=== PATIENT | male | born 1995 | race African-American/Black ===

== ENCOUNTER 2024-01-22 15:39 | Emergency (ER) | payer SELFPAY ==
[~2024-01-22] VITALS: Ht 190.5 cm; Wt 79.4 kg
[2024-01-22 15:53] VITALS: BP 127/75; PULSE 74; RESP 16; TEMP 98.6; O2SAT 100
[2024-01-22 16:21] LABS: BASOPHILS % 0.5 % (0.0-2.0); EOSINOPHILS % 0.3 % (0.0-5.0); HEMATOCRIT. 41.5 % (42.0-52.0); HEMOGLOBIN. 13.9 g/dL (14.0-18.0); LYMPHOCYTES % 18.7 % (20.0-50.0); MEAN CORPUSCULAR HEMOGLOBIN 30.7 pg (28.0-32.0); MEAN CORPUSCULAR HGB CONC 33.4 g/dL (31.0-37.0); MEAN PLATELET VOLUME 7.2 fl (7.4-10.4); MONOCYTES % 5.1 % (2.0-8.0); NEUTROPHILS % 75.4 % (40.0-76.0); PLATELET 338 x1000/uL (130-400); RED BLOOD CELL COUNT 4.52 mill/uL (4.7-6.1); WHITE BLOOD COUNT 7.4 x1000/uL (4.5-11.0)
[2024-01-22 16:31] LABS: CHLORIDE 106 mEq/L (98-107); POTASSIUM 3.5 mEq/L (3.5-5.1); SODIUM 143 mEq/L (136-145)
[2024-01-22 16:32] LABS: CARBON DIOXIDE 25 mEq/L (21-32)
[2024-01-22 16:33] LABS: CALCIUM 9.9 mg/dL (8.7-10.4)
[2024-01-22 16:37] LABS: CREATININE 1.1 mg/dL (0.6-1.3)
[2024-01-22 16:38] LABS: GLUCOSE 81 mg/dL (70-105); UREA NITROGEN BLOOD 8 mg/dL (9-23)
[2024-01-22 16:39] LABS: ALANINE AMINOTRANSFERASE 16 IU/L (10-49); ALBUMIN 4.6 g/dL (3.2-4.8); ASPARTATE AMINOTRANSFERASE 23 IU/L (<34)
[2024-01-22 16:40] LABS: BILIRUBIN DIRECT 0.3 mg/dL (<=3.0); BILIRUBIN TOTAL 0.9 mg/dL (0.1-1.0); PROTEIN TOTAL 8.1 g/dL (6.0-8.3)
== END 2024-01-22 20:22 | disposition left against medical advice (07) ==
LOC: ER 15:39
DX: R10.9 Unspecified abdominal pain (principal); Z53.21 Procedure and treatment not carried out due to patient leaving prior to being seen by health care provider
CPT/HCPCS: 36415; 80048; 80076; 85025